=== PATIENT | female | born 1990 | race Caucasian/White ===

== ENCOUNTER 2016-11-15 00:26 | Emergency (ER) | payer OTHER ==
[~2016-11-15] VITALS: Ht 157.5 cm; Wt 93.0 kg
[2016-11-15] MEDS ORDERED: DEXAMETHASONE 4 MG TABLET ONE (01:15)
[2016-11-15] MEDS ORDERED: HYDROcodone/APAP 5/325 TABLET ONE (01:15)
[2016-11-15] MEDS ORDERED: HYDROcodone/APAP 5/325 TABLET PO ONE (01:30)
[2016-11-15] MEDS ORDERED: DEXAMETHASONE 4 MG TABLET PO ONE (01:30)
[2016-11-15 01:51] VITALS: BP 115/84
== END 2016-11-15 01:53 | disposition home or self-care (01) ==
LOC: ED 01:20
DX: K06.1 Gingival enlargement (principal); K08.89 Other specified disorders of teeth and supporting structures
CPT/HCPCS: 99283